=== PATIENT | male | born 1965 | race Caucasian/White ===

== ENCOUNTER 2018-08-03 08:04 | Emergency (ER) | payer BC ==
[~2018-08-03] VITALS: Ht 185.4 cm; Wt 95.0 kg
[2018-08-03 08:08] VITALS: TEMP 97.6
[2018-08-03 08:43] LABS: BASO # 0.1 (0.0-0.2); BASO % 0.6 % (0.0-2.0); EOS # 0.2 (0.0-0.7); GRAN # 4.4 (1.4-6.5); HEMATOCRIT 47.8 % (42.0-52.0); LYMPH # 3.9 (1.2-3.4); MEAN CELL VOLUME 91 fl (80.0-100.0); MEAN CORPUSCULAR HEMOGLOBIN 31 pg (27.0-31.0); MEAN CORPUSCULAR HGB CONC 34 g/dl (33.0-37.0); MEAN PLATELET VOLUME 9.5 fl (7.4-10.4); MONO # 0.8 (0.1-0.6); MONO % 8.2 % (1.7-9.3); PLATELET COUNT 233 K/mm3 (130-400); RED BLOOD COUNT 5.24 M/mm3 (4.20-5.60); REDCELL DISTRIBUTION WIDTH-CV 12.4 % (11.5-14.5)
[2018-08-03 08:54] LABS: ALANINE AMINOTRANSFERASE 36 U/L (21-72); ALBUMIN 4.3 gm/dL (3.5-5.0); ALKALINE PHOSPHATASE 88 U/L (50-136); ANION GAP 6 mmol/L (7-16); AST,SGOT 41 U/L (15-37); BILIRUBIN,TOTAL 0.9 mg/dL (0.0-1.0); BLOOD UREA NITROGEN 18 mg/dL (9-20); CALCIUM 8.9 mg/dL (8.4-10.2); CARBON DIOXIDE 31 mmol/L (22-30); CHLORIDE 103 mmol/L (98-107); CREATININE, serum 0.97 mg/dL (0.66-1.25); GLUCOSE 99 mg/dL (74-106); LIPASE 113 U/L (23-300); POTASSIUM 4.3 mmol/L (3.4-5.0); SODIUM 140 mmol/L (137-145); TOTAL PROTEIN 7.8 gm/dL (6.4-8.2)
[2018-08-03 09:08] LABS: TROPONIN-I < 0.012 ng/mL (0.000-0.034)
[2018-08-03] MEDS ORDERED: NITROSTAT0.3 MG SL (11:35)
[2018-08-03 12:26] VITALS: BP 140/90; PULSE 62
== END 2018-08-03 12:35 | disposition home or self-care (01) ==
LOC: COL.ER 08:04
PROVIDERS: Emergency Medicine
DX: R07.89 Other chest pain (principal)

== ENCOUNTER 2018-08-23 11:51 | Day surgery (SDC) | payer BC ==
[2018-08-23] VITALS (7 sets, daily range): BP systolic 110–142; BP diastolic 58–102; PULSE 60–75; TEMP 98
[~2018-08-23] VITALS: Ht 185.4 cm; Wt 99.4 kg
[~2018-08-23 11:51] MED LIST: NITROSTAT0.3 MG SL
[2018-08-23] MEDS ORDERED: NITROSTAT0.4 MG/TAB SL (12:23)
[2018-08-23] MEDS ORDERED: ASPI325T6 PO (12:23)
[2018-08-23] MEDS ORDERED: LIPITOR 40MG TA40 MG PO (12:23)
[2018-08-23] MEDS ORDERED: B-121000 MCG PO (12:24)
[2018-08-23 12:29] LABS: HEMATOCRIT 48.6 % (42.0-52.0); HEMOGLOBIN 16.2 g/dl (13.5-18.0); MEAN CELL VOLUME 92 fl (80.0-100.0); MEAN CORPUSCULAR HEMOGLOBIN 31 pg (27.0-31.0); MEAN CORPUSCULAR HGB CONC 33 g/dl (33.0-37.0); MEAN PLATELET VOLUME 9.2 fl (7.4-10.4); PLATELET COUNT 251 K/mm3 (130-400); RED BLOOD COUNT 5.29 M/mm3 (4.20-5.60); REDCELL DISTRIBUTION WIDTH-CV 12.5 % (11.5-14.5)
[2018-08-23 12:30] LABS: INR 1.1 (0.8-3.0)
[2018-08-23 12:36] LABS: CALCIUM 9.2 mg/dL (8.4-10.2); POTASSIUM 4.2 mmol/L (3.4-5.0)
[2018-08-23] MEDS ORDERED: PROTONIX 40MG T40 MG PO (15:02)
[2018-08-23] MEDS ORDERED: ASPIRIN E.C. 8181 MG PO (15:02)
== END 2018-08-23 16:55 | disposition home or self-care (01) ==
LOC: COL.CAR 11:51
PROVIDERS: Internal Medicine Cardiovascular Disease
DX: R07.89 Other chest pain (principal); R94.39 Abnormal result of other cardiovascular function study; E78.5 Hyperlipidemia, unspecified; Z79.82 Long term (current) use of aspirin; Z88.2 Allergy status to sulfonamides
CPT/HCPCS: J1200; J1644; J2250; J3010; Q9967